=== PATIENT | female | born 1945 | race African-American/Black ===

== ENCOUNTER 2017-06-19 05:55 | Emergency (ER) | payer BC, MEDICARE ==
[~2017-06-19] VITALS: Ht 170.2 cm; Wt 100.0 kg
[2017-06-19 05:58] VITALS: BP 126/66; PULSE 81; TEMP 98.2
[2017-06-19] MEDS ORDERED: GLUCOPHAGE1000 MG PO (06:03)
[2017-06-19] MEDS ORDERED: ALEVE 220MG220 MG PO (06:03)
[2017-06-19] MEDS ORDERED: LEVOXYL0.025 MG (06:03)
== END 2017-06-19 08:10 | disposition home or self-care (01) ==
LOC: COL.ER 05:55
DX: M25.511 Pain in right shoulder (principal); E11.9 Type 2 diabetes mellitus without complications; Z79.84 Long term (current) use of oral hypoglycemic drugs; W22.8XXA Striking against or struck by other objects, initial encounter

== ENCOUNTER → 2020-11-02 | Outpatient (CLI) | payer MEDICARE, BC ==
[~2020-11-02] MED LIST: ALEVE 220MG220 MG PO; GLUCOPHAGE1000 MG PO; LEVOXYL0.025 MG
== END ==
LOC: MC.RAD 10:08
DX: Z12.31 Encounter for screening mammogram for malignant neoplasm of breast (principal)

== ENCOUNTER → 2023-10-09 | Outpatient (CLI) | payer MEDICARE, BC | LOC: MC.RAD 09:22 | DX: Z12.31 Encounter for screening mammogram for malignant neoplasm of breast (principal) ==